=== PATIENT | male | born 1985 | race African-American/Black ===

== ENCOUNTER 2020-01-23 20:39 | Emergency (ER) | payer OTHER ==
--- NOTE | 2020-01-23 21:14 | EDM.PDOC ---
ED HPI GENERAL MEDICAL PROBLEM - General Chief Complaint: Lower Extremity Injury/Pain Stated Complaint: ANKLE INJURY Time Seen by Provider: 01/23/20 20:55 Source of Information: Reports: Patient, RN Notes Reviewed History Limitations: Reports: No Limitations - History of Present Illness INITIAL COMMENTS - FREE TEXT/NARRATIVE: Patient is a 34-year-old male who presents to the ED for evaluation of a right ankle injury. Patient notes he was playing basketball at the gym, when he was pushing off with his right foot, and felt a pop in his posterior ankle, and had intense pain right after that. He states after this pop it was hard to plantarflex or dorsiflex his foot much at all, he states that this caused a lot of pain. He did not take anything for pain management as he came straight to the ER for evaluation. He has no numbness or tingling into his toes, and has mild decreased strength in his right foot, on plantar flexion. He is not been known to have any other sick-like symptoms, fever/chills, cough/shortness of breath, nausea/vomiting/diarrhea. He is a fairly healthy gentleman otherwise, and is not counting any other past medical history. He has no medication allergies. Right Ankle Pain Score (Numeric/FACES): 7 - Related Data Allergies Allergy/AdvReac Type Severity Reaction Status Date / Time No Known Allergies Allergy Verified 01/23/20 20:50 Home Meds: Home Meds Acetaminophen/HYDROcodone [[place] 325-5 MG] 1 tab PO Q6H PRN #15 tablet 01/23/20 [Rx] Past Medical History Cardiovascular History: Reports: Hypertension Social & Family History - Tobacco Use Smoking Status *Q: Current Every Day Smoker Years of Tobacco use: 4 Packs/Tins Daily: 0.1 - Alcohol Use Days Per Week of Alcohol Use: 3 Number of Drinks Per Day: 3 Total Drinks Per Week: 9 - Recreational Drug Use Recreational Drug Use: No Review of Systems - Review of Systems Review Of Systems: Comprehensive ROS is negative, except as noted in HPI. ED EXAM, GENERAL - Physical Exam Exam: See Below Exam Limited By: No Limitations General Appearance: Alert, WD/WN, No Apparent Distress Respiratory/Chest: No Respiratory Distress, Lungs Clear, Normal Breath Sounds, No Accessory Muscle Use, Chest Non-Tender Cardiovascular: Normal Peripheral Pulses, Regular Rate, Rhythm, No Murmur Peripheral Pulses: 2+: Dorsalis Pedis (L), Dorsalis Pedis (R) Extremities: Normal Inspection, Normal Capillary Refill, Limited Range of Motion (of right foot. I had him lay prone on cot and squeezed right calf, this elicited no movement of his foot in plantarflexion or dorsiflexion. This was normal on his left calf/leg/foot.) Neurological: Alert, Oriented, Normal Cognition Psychiatric: Normal Affect, Normal Mood Skin Exam: Warm, Dry, Intact, Normal Color, No Rash ED TRAUMA EXTREMITY PROCEDURES - Splinting Right Lower Extremity Splint Site: right ankle Pre-Procedure NV Status: Normal Post-Procedure NV Status: Normal Splint Material: Fiberglass Splint Design: Posterior (in plantarflexion) Applied & Form Fitted By: Provider, Nurse Provider Post-Splint Application NV Check: NV Status Normal, Good Position Complications: No Course - Vital Signs Last Recorded V/S: Last Vital Signs Temp 96.7 F L 01/23/20 20:50 Pulse 91 01/23/20 20:50 Resp 15 01/23/20 20:50 BP 155/111 H 01/23/20 20:50 Pulse Ox 96 01/23/20 20:50 - Orders/Labs/Meds Orders: Active Orders 24 hr Category Date Time Status Ankle Min 3V Lt [CR] Stat Exams 01/23/20 20:55 Stop Req Ankle Min 3V Rt [CR] Stat Exams 01/23/20 20:58 Stop Req DME for Discharge [COMM] Routine Oth 01/23/20 21:05 Ordered - Re-Assessments/Exams Free Text/Narrative Re-Assessment/Exam: 01/23/20 21:09 Patient presents to the ED for the evaluation of his right ankle injury. After examination, it is fairly apparent that he has some sort of rupture of his Achilles tendon. Patient will be placed in a posterior short leg splint, and plantar flexion, and given crutches for immobilization and have him follow-up with Dr. Lainez for further management. He will be given a few tablets of [place] for pain management, but directed to take Tylenol ibuprofen as much as he can to try to avoid the stronger pain medication. Patient verbalized understanding. Departure - Departure Time of Disposition: 21:14 Disposition: Home, Self-Care 01 Condition: Good Clinical Impression: Achilles rupture, right Qualifiers: Encounter type: initial encounter Qualified Code(s): S86.011A - Strain of right Achilles tendon, initial encounter - Discharge Information *PRESCRIPTION DRUG MONITORING PROGRAM REVIEWED*: Yes *COPY OF PRESCRIPTION DRUG MONITORING REPORT IN PATIENT [place]IL[place]: No Prescriptions: Acetaminophen/HYDROcodone [[place] 325-5 MG] 1 tab PO Q6H PRN #15 tablet PRN Reason: Pain Instructions: Achilles Tendon Tear Referrals: PCP,None [Primary Care Provider] - Additional Instructions: You have been evaluated in the ED for your right ankle/leg pain. Please use ice as tolerated to the affected area. You may elevate the affected area to provide further relief from swelling. You were placed in a posterior leg splint, to help immobilize your ankle joint, and given crutches for walking. Please use these crutches as much as possible to help provide further nonweightbearing and pain relief. You may take Tylenol 500 mg or ibuprofen 600mg q6 hrs for pain relief. Please do so until you have a tolerable level of pain with activity. Do not exceed 4000mg Tylenol, Do not exceed 3200mg ibuprofen in a 24 hour time period. You were given a prescription for a strong pain medication, hydrocodone/acetaminophen 5/325, please take 1 tab every 6 hours as needed for pain not relieved by Tylenol or ibuprofen alone. Please note this does contain Tylenol in it, so do not take more than 4000 mg in a 24-hour time span. These medications can be addictive, so please take as few as possible to achieve adequate pain control. These meds can also be quite constipating, recommend that you increase your oral fluid intake and take a stool softener like MiraLAX while taking these medications. Please call Ortho for follow-up and further evaluation Dr. Lainez is our orthopedic surgeon, his office number is [phone]. Please call and set up an appointment as soon as possible for further management. Please return to ED if your symptoms should change or worsen. Sepsis Event Note (ED) - Evaluation Sepsis Screening Result: No Definite Risk - Focused Exam Vital Signs: Vital Signs Temp Pulse Resp BP Pulse Ox 01/23/20 20:50 96.7 F L 91 15 155/111 H 96 - My Orders Last 24 Hours: My Active Orders 01/23/20 20:55 Ankle Min 3V Lt [CR] Stat 01/23/20 20:58 Ankle Min 3V Rt [CR] Stat 01/23/20 21:05 DME for Discharge [COMM] Routine - Assessment/Plan Last 24 Hours: My Active Orders 01/23/20 20:55 Ankle Min 3V Lt [CR] Stat 01/23/20 20:58 Ankle Min 3V Rt [CR] Stat 01/23/20 21:05 DME for Discharge [COMM] Routine
== END 2020-01-23 21:34 | disposition home or self-care (01) ==
LOC: JD.ED 20:39
DX: S86.011A Strain of right Achilles tendon, initial encounter (principal); I10 Essential (primary) hypertension; F17.210 Nicotine dependence, cigarettes, uncomplicated; X50.9XXA Other and unspecified overexertion or strenuous movements or postures, initial encounter; Y93.67 Activity, basketball; Y92.39 Other specified sports and athletic area as the place of occurrence of the external cause
CPT/HCPCS: 29515; 99283; 99283-25